=== PATIENT | female | born 1990 | race Hispanic/Latino ===

== ENCOUNTER 2024-10-24 23:30 | Emergency (ER) | payer BC ==
[2024-10-25] MEDS ORDERED: dexAMETHasone 4 MG TAB ONE (00:05)
[2024-10-25] MEDS ORDERED: IBUPROFEN 400 MG TAB ONE (00:06)
[2024-10-25] MEDS ORDERED: AMOX/K CLAV 875 MG TAB ONE (00:06)
[2024-10-25] MEDS ORDERED: HYDROCOD 2.5mg-ACETAMIN 108mg/5mL Soln ONE (00:06)
--- NOTE | 2024-10-25 00:21 | ER ---
Nurse's Notes [facility] Name: Trudy Nguyễn Age: 33 yrs Sex: Female : 1990 Arrival Date: 10/24/2024 Time: 23:30 Bed 25 Private MD: Diagnosis: Otitis media, unspecified, right ear Presentation: 10/24 23:35 Chief complaint: Patient states: Right ear pain that radiates down right neck, started me1 tonight, 8/10, throbbing. Coronavirus screen: Vaccine status: Patient reports being unvaccinated. Ebola Screen: No symptoms or risks identified at this time. Initial Sepsis Screen: Does the patient meet any 2 criteria? No. Patient's initial sepsis screen is negative. Risk Assessment: Do you want to hurt yourself or someone else? Patient reports no desire to harm self or others. Onset of symptoms was October 24, 2024 at 22:00. 23:35 Method Of Arrival: Ambulatory ne1 23:35 Acuity: LOLIS 5 me1 Triage Assessment: 23:36 General: Appears uncomfortable, well groomed, well developed, well nourished, Behavior me1 is calm, cooperative, appropriate for age, Reports right ear pain that started about 10pm tonight, 8/10, throbbing and radiates down right neck. Reports cough, congestion and sore throat since last Monday10/18/24. Pain: Complains of pain in right ear Pain radiates to right sternocleidomastoid Pain currently is 8 out of 10 on a pain scale. Quality of pain is described as throbbing, Pain began 2 hours ago. Is continuous. EENT: Reports pain in right ear since 10 pm. EENT: Reports nasal congestion pain when swallowing. Neuro: Level of Consciousness is awake, alert, obeys commands, Oriented to person, place, time, situation, Appropriate for age. Cardiovascular: Patient's skin is warm and dry. Respiratory: Airway is patent Trachea midline Respiratory effort is even, unlabored, Respiratory pattern is regular, symmetrical. Respiratory: Reports cough that is persistent since Last Monday. GI: No signs and/or symptoms were reported involving the gastrointestinal system. : No signs and/or symptoms were reported regarding the genitourinary system. Derm: Skin is intact, is healthy with good turgor, Skin is normal. Musculoskeletal: No signs and/or symptoms reported regarding the musculoskeletal system. Circulation, motion, and sensation intact. Range of motion: intact in all extremities. 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 - Infectious Disease History:: Denies. - Social history:: Smoking status: Patient denies any tobacco usage or history of. Screenin/27 00:30 [facility] ED Fall Risk Assessment (Adult) History of falling in the last 3 months, jb4 including since admission No falls in past 3 months (0 pts) Confusion or Disorientation No (0 pts) Intoxicated or Sedated No (0 pts) Impaired Gait No (0 pts) Mobility Assist Device Used No (0 pt) Altered Elimination No (0 pt) Score/Fall Risk Level 0 - 2 = Low Risk Oriented to surroundings, Maintained a safe environment. Abuse screen: Denies threats or abuse. Nutritional screening: No deficits noted. Tuberculosis screening: No symptoms or risk factors identified. Assessment: 00:30 Reassessment: Patient appears in no apparent distress at this time. Patient and/or jb4 family updated on plan of care and expected duration. Pain level reassessed. Patient is alert, oriented x 3, equal unlabored respirations, skin warm/dry/pink. Vital Signs: 10/24 23:35 BP 114 / 77; Pulse 79; Resp 15; Temp 98.1; Pulse Ox 100% ; Weight 73.94 kg; Height 5 me1 ft. 0 in. ; Pain 8/10; 23:35 Body Mass Index 31.83 (73.94 kg, 152.4 cm) ne1 23:35 Pain Scale: Adult ne1 ED Course: 23:32 Patient arrived in ED. gm2 23:33 Christopher Vela PA is PHCP. cp 23:33 Donaldo Mcwilliams MD is Attending Physician. cp 23:36 Triage completed. me1 23:36 Arm band placed on Patient placed in an exam room. me1 10/25 00:19 Chantelle Gandara MD is Referral Physician. cp 00:30 Patient has correct armband on for positive identification. Bed in low position. Call jb4 light in reach. Side rails up X 1. Provided Education on: discharge instructions.. 00:30 No provider procedures requiring assistance completed. Patient did not have IV access jb4 during this emergency room visit. Administered Medications: 00:09 Drug: Ibuprofen PO 800 mg PO once Route: PO; jb4 00:34 Follow up: Response: No adverse reaction; Marked relief of symptoms jb4 00:10 Drug: Lortab PO Liquid 15 ml PO once Route: PO; jb4 00:35 Follow up: Response: No adverse reaction; Marked relief of symptoms jb4 00:10 Drug: Dexamethasone PO 10 mg PO once Route: PO; jb4 00:34 Follow up: Response: No adverse reaction; Marked relief of symptoms jb4 00:10 Drug: Amoxicillin-Clavulanate PO 875 mg PO once Route: PO; jb4 00:34 Follow up: Response: No adverse reaction; Marked relief of symptoms jb4 Medication: 00:30 VIS not applicable for this client. jb4 Outcome: 00:20 Discharge ordered by . cp 00:30 Discharged to home ambulatory, jb4 00:30 Condition: stable 00:30 Discharge instructions given to patient, Instructed on discharge instructions, follow up and referral plans. medication usage, Demonstrated understanding of instructions, follow-up care, medications, Prescriptions given X 2, 00:34 Patient left the ED. jb4 Signatures: Christopher Vela PA PA cp Bryson, James, RN RN jb4 Sophia Smallwood RN RN ne1 Trish Zaman 2
--- NOTE | 2024-10-25 00:21 | EDPHYS ---
Physician Documentation [facility] Name: Trudy Nguyễn Age: 33 yrs Sex: Female : 1990 Arrival Date: 10/24/2024 Time: 23:30 Bed 25 Private MD: ED Physician Donaldo Mcwilliams HPI: 10/25 00:01 This 33 yrs old Female presents to ER via Ambulatory with complaints of Ear cp Pain. 00:01 The patient presents with pain, that is acute. The complaints affect the right ear. cp Onset: The symptoms/episode began/occurred tonight. Associated signs and symptoms: Pertinent positives: sore throat, cough, Pertinent negatives: fever, drainage from ear. Severity of symptoms: in the emergency department the symptoms are unchanged despite home interventions. 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 - Infectious Disease History:: Denies. - Social history:: Smoking status: Patient denies any tobacco usage or history of. ROS: 10/25 00:03 Eyes: Negative for injury, pain, redness, and discharge, cp Constitutional: Negative for body aches, chills, fever, poor PO intake, ENT: Positive for ear pain, sore throat, Negative for drainage from ear(s), sinus pain, difficulty swallowing, difficulty handling secretions, Respiratory: Positive for cough, Abdomen/GI: Negative for abdominal pain, vomiting, diarrhea, constipation, Skin: Negative for rash, Neuro: Negative for altered mental status, All other systems are negative, Exam: 00:03 Head/Face: Normocephalic, atraumatic. cp 00:03 Constitutional: The patient appears in no acute distress, alert, awake, non-toxic, well developed, well nourished, uncomfortable, 00:03 Eyes: Periorbital structures: appear normal, Conjunctiva: normal, no exudate, no injection, Lids and lashes: appear normal, bilaterally, 00:03 ENT: External ear(s): pain with movement, that is moderate, of the pinna of right ear, Ear canal(s): are normal, clear, TM's: bulging, on the right, erythema, that is moderate, on the right, Nose: is normal, Mouth: Lips: moist, Oral mucosa: moist, Posterior pharynx: Airway: no evidence of obstruction, patent, erythema, that is mild, exudate, is not appreciated, Voice: is normal, 00:03 Neck: ROM/movement: limited range of motion, is not appreciated, Meningeal signs: are not present, Lymph nodes: no appreciated lymphadenopathy, 00:03 Chest/axilla: Inspection: normal, 00:03 Cardiovascular: Rate: normal, 00:03 Respiratory: the patient does not display signs of respiratory distress, Respirations: normal, no use of accessory muscles, no retractions, labored breathing, is not present, Breath sounds: stridor, is not appreciated, + upper airway congestion. wheezing: is not appreciated, Vital Signs: 10/24 23:35 BP 114 / 77; Pulse 79; Resp 15; Temp 98.1; Pulse Ox 100% ; Weight 73.94 kg; Height 5 me1 ft. 0 in. ; Pain 8/10; 23:35 Body Mass Index 31.83 (73.94 kg, 152.4 cm) me1 23:35 Pain Scale: Adult me1 MDM: 23:45 Medical Screening Exam initiated cp 10/25 00:00 Differential diagnosis: otitis media, otitis externa, ruptured TM, cerumen impaction, cp barotrauma . 00:20 Data reviewed: vital signs, nurses notes, and as a result, I will discharge patient. cp 00:20 Counseling: I had a detailed discussion with the patient and/or guardian regarding the cp historical points, exam findings, and any diagnostic results supporting the discharge/admit diagnosis, to return to the emergency department if symptoms worsen or persist or if there are any questions or concerns that arise at home. Response to treatment: the patient's symptoms have mildly improved after treatment, and as a result, I will discharge patient. Administered Medications: 00:09 Drug: Ibuprofen PO 800 mg PO once Route: PO; jb4 00:34 Follow up: Response: No adverse reaction; Marked relief of symptoms jb4 00:10 Drug: Lortab PO Liquid 15 ml PO once Route: PO; jb4 00:35 Follow up: Response: No adverse reaction; Marked relief of symptoms jb4 00:10 Drug: Dexamethasone PO 10 mg PO once Route: PO; jb4 00:34 Follow up: Response: No adverse reaction; Marked relief of symptoms jb4 00:10 Drug: Amoxicillin-Clavulanate PO 875 mg PO once Route: PO; jb4 00:34 Follow up: Response: No adverse reaction; Marked relief of symptoms jb4 Disposition: 20:48 Co-signature as Attending Physician, Donaldo Mcwilliams MD I agree with the assessment sp4 and plan of care. I reviewed the patient's care provided by the Advanced Practice Provider and agree with the diagnosis and treatment plan. Disposition Summary: 10/25/24 00:20 Discharge Ordered Notes: Location: Home cp Problem: new cp Symptoms: have improved cp Condition: Stable cp Diagnosis - Otitis media, unspecified, right ear cp Followup: cp - With: Chantelle Gandara MD - When: 2 - 3 days - Reason: pain continues Discharge Instructions: - Discharge Summary Sheet cp - Otitis Media, Adult cp Forms: - Medication Reconciliation Form cp - Antibiotic Education cp - Prescription Opioid Use cp - Patient Portal Instructions cp - Leadership Thank You Letter cp Prescriptions: - Augmentin 875-125 mg Oral Tablet - take 1 tablet ORAL route every 12 hours for 10 days; 20 tablet; Refills: 0, cp Product Selection Permitted - Medrol (David) 4 mg Oral Tablets, Dose Pack - take 1 tablet ORAL route as directed - follow package instructions; 1 packet; cp Refills: 0, Product Selection Permitted Signatures: Christopher Vela PA PA cp Akshat Lamas, MACKENZIE RN jb4 Donaldo Mcwilliams MD MD sp4 Sophia Smallwood RN RN me1
[2024-10-25 00:49] VITALS: BP 114/77; TEMP 98.1; O2SAT 100
== END 2024-10-25 00:34 | disposition home or self-care (01) ==
LOC: ER 23:30
DX: H66.91 Otitis media, unspecified, right ear (principal)
CPT/HCPCS: 99283; J8540